=== PATIENT | male | born 1945 | race Caucasian/White ===

== ENCOUNTER → 2017-06-03 | Outpatient (CLI) | payer OTHER ==
--- NOTE | 2017-06-03 15:27 | CPR ---
[f rep st] NONINVASIVE CARDIAC PROCEDURE REPORT PROCEDURE: Exercise nuclear stress test. INDICATION: The patient is a male with a history of nonobstructive coronary artery disease, hypertension, and hyperlipidemia. He presents for a nuclear stress test prior to hernia surgery. PROCEDURE IN DETAIL: Consent was obtained and patient was placed on continuous telemetry. His resting EKG reveals normal sinus rhythm without any ST-T wave changes to suggest ischemia. The patient walked on the treadmill for 7 minutes without any associated symptoms. He remained in normal sinus rhythm with very rare PVCs. There were nonspecific ST-T wave changes in the inferior and lateral leads with exercise. His heart rate increased quickly with initial exertion, peaking at 126 beats per minute after 3 minutes. His heart rate then increased appropriately. His blood pressure at rest was 110/62 and increased appropriately, peaking at 170/60. It returned to baseline within 5 minutes of recovery. PLAN: There were minimal upsloping ST depression in the lateral leads and nonspecific ST changes in the inferior leads with exertion. Await nuclear images. /[id number]/MODL MTDD
== END ==
LOC: FIMAGING 13:12
PROVIDERS: ATTEND Physician Assistant
DX: R07.9 Chest pain, unspecified (principal); I10 Essential (primary) hypertension; E78.5 Hyperlipidemia, unspecified; I25.10 Atherosclerotic heart disease of native coronary artery without angina pectoris

== ENCOUNTER → 2017-06-04 | Outpatient (CLI) | payer OTHER | LOC: FIMAGING 10:50 → EDSTATUS 10:51 | PROVIDERS: ATTEND Family Medicine | DX: M77.31 Calcaneal spur, right foot (principal); M10.9 Gout, unspecified ==

== ENCOUNTER → 2018-07-03 | Outpatient (CLI) | payer OTHER ==
[~2018-07-03] MED LIST: GADOBUTROL 10 ML VIAL IVP ONE
== END ==
LOC: FIMAGING 13:47
PROVIDERS: ATTEND Family Medicine
DX: Z80.0 Family history of malignant neoplasm of digestive organs (principal); K86.2 Cyst of pancreas
CPT/HCPCS: 82565-PO; A9585